=== PATIENT | male | born 1985 | race Caucasian/White ===

== ENCOUNTER 2020-01-26 07:04 | Emergency (ER) | payer OTHER ==
[~2020-01-26] VITALS: Ht 175.3 cm; Wt 81.6 kg
[2020-01-26 07:10] VITALS: BP 148/84
--- NOTE | 2020-01-26 07:40 | NUR ---
RT AT BEDSIDE FOR BREATHING TX
[2020-01-26] MEDS: ALBUTEROL FS 2.5 MG/3 ML VIAL.NEB NEB ONE (07:41)
[2020-01-26] MEDS: IPRATROPIUM NEB FS 0.5 MG/2.5 ML AMPUL.NEB NEB ONE (07:41)
[2020-01-26] MEDS ORDERED: ALBUTEROL FS 2.5 MG/3 ML VIAL.NEB ONE (07:44)
[2020-01-26] MEDS ORDERED: IPRATROPIUM NEB FS 0.5 MG/2.5 ML AMPUL.NEB ONE (07:44)
== END 2020-01-26 08:13 | disposition home or self-care (01) ==
LOC: ER 07:09
DX: J40 Bronchitis, not specified as acute or chronic (principal); F17.200 Nicotine dependence, unspecified, uncomplicated; Z90.89 Acquired absence of other organs; Z88.8 Allergy status to other drugs, medicaments and biological substances
CPT/HCPCS: 71045-TC

== ENCOUNTER 2021-10-12 09:26 | Emergency (ER) | payer OTHER ==
[~2021-10-12] VITALS: Ht 177.8 cm; Wt 90.7 kg
--- NOTE | 2021-10-12 09:35 | NUR ---
bibs for c/o lower back pain x 1 week 10/10 pain scale. will continue to monitor.
--- NOTE | 2021-10-12 09:35 | NUR ---
DR TOLLIVER AT THE BEDSIDE
[2021-10-12] MEDS ORDERED: IBUP-1955 PO (09:40)
[2021-10-12] MEDS ORDERED: HYDR-4275 PO (09:40)
[2021-10-12] MEDS ORDERED: KETOROLAC TROMETHAMINE INJ 30 MG/ML VIAL ONE (09:44)
[2021-10-12] MEDS: KETOROLAC TROMETHAMINE INJ 60 MG/2 ML VIAL IM ONE (09:47)
--- NOTE | 2021-10-12 09:49 | NUR ---
Patient discharged to home in stable condition. Written and verbal after care instructions given. Patient verbalizes understanding of instruction.
[2021-10-12 09:50] VITALS: BP 129/87
== END 2021-10-12 09:50 | disposition home or self-care (01) ==
LOC: ER 09:30
DX: M54.42 Lumbago with sciatica, left side (principal); F17.200 Nicotine dependence, unspecified, uncomplicated; Z90.89 Acquired absence of other organs; Z88.8 Allergy status to other drugs, medicaments and biological substances
CPT/HCPCS: 96372; 99283; J1885

== ENCOUNTER 2022-09-27 09:08 | Emergency (ER) | payer OTHER ==
[~2022-09-27] VITALS: Ht 180.3 cm; Wt 95.3 kg
[~2022-09-27 09:08] MED LIST: HYDR-4275 PO; IBUP-1955 PO
[2022-09-27 09:39] VITALS: BP 154/99
--- NOTE | 2022-09-27 09:39 | NUR ---
BIBS C/O R FOOT PAIN, SWELLING/DISCOLORATION TO 2ND TOE S/P HITTING A METAL OBJECT WHILE PLAYING SOCCER YESTERDAY. PAIN 6/10 O PAIN SCALE. AWAITING MD ORDERS.
--- NOTE | 2022-09-27 10:54 | NUR ---
TECH AT BEDSIDE FOR DILCIA TAPE APPLICATION. PT SIGNED DISCHARGE FORM; INSTRUCTIONS PROVIDED TO PT AND VERBALIZED UNDERSTANDING.
--- NOTE | 2022-09-27 10:56 | NUR ---
Patient discharged to home in stable condition. Written and verbal after care instructions given. Patient verbalizes understanding of instruction.
== END 2022-09-27 10:56 | disposition home or self-care (01) ==
LOC: ER 09:14
DX: S90.121A Contusion of right lesser toe(s) without damage to nail, initial encounter (principal); F17.200 Nicotine dependence, unspecified, uncomplicated; Z90.89 Acquired absence of other organs; Z88.8 Allergy status to other drugs, medicaments and biological substances; W22.8XXA Striking against or struck by other objects, initial encounter; Y93.66 Activity, soccer; Y92.322 Soccer field as the place of occurrence of the external cause; Y99.8 Other external cause status
CPT/HCPCS: 73660-TC

== ENCOUNTER 2023-07-29 17:30 | Emergency (ER) | payer OTHER ==
[~2023-07-29] VITALS: Ht 180.3 cm; Wt 93.0 kg
[2023-07-29] MEDS ORDERED: CYCLOBENZAPRINE 10 MG TABLET ONE (17:55)
[2023-07-29] MEDS ORDERED: KETOROLAC TROMETHAMINE INJ 30 MG/ML VIAL ONE (17:55)
[2023-07-29] MEDS ORDERED: KETOROLAC TROMETHAMINE INJ 60 MG/2 ML VIAL IM ONE (18:00)
[2023-07-29] MEDS ORDERED: CYCLOBENZAPRINE 10 MG TABLET PO ONE (18:00)
[2023-07-29] MEDS ORDERED: HYDROCODONE/APAP 10/325MG TABLET ONE (19:22)
[2023-07-29] MEDS ORDERED: HYDROCODONE/APAP 10/325MG TABLET PO ONE (19:30)
[2023-07-29] MEDS ORDERED: IBUP-1958 PO (19:37)
[2023-07-29] MEDS ORDERED: TYL2T PO (19:37)
[2023-07-29 20:11] VITALS: BP 138/90; TEMP 98.4; O2SAT 98
== END 2023-07-29 20:11 | disposition home or self-care (01) ==
LOC: ER 17:54
DX: S93.492A Sprain of other ligament of left ankle, initial encounter (principal); F17.200 Nicotine dependence, unspecified, uncomplicated; Z79.899 Other long term (current) drug therapy; Z90.49 Acquired absence of other specified parts of digestive tract; Z88.1 Allergy status to other antibiotic agents; W11.XXXA Fall on and from ladder, initial encounter; Y93.89 Activity, other specified; Y92.89 Other specified places as the place of occurrence of the external cause; Y99.8 Other external cause status
CPT/HCPCS: 99285; 72131; 96372; 73610; 73630; 73590; 72128; J1885